=== PATIENT | female | born 1970 | race Asian ===

== ENCOUNTER 2019-01-10 12:04 | Day surgery (SDC) | payer OTHER ==
[2019-01-07 11:22] VITALS: BMI 38.9
[2019-01-10 10:29] LABS: BASO % 0.4 % (0-2.0); EOS % 4.8 % (0-4.5); HEMATOCRIT 34.5 % (32.4-45.2); LYMPH % 27.3 % (8-40); MCH 26.5 pg (25.7-33.7); MEAN CELL VOLUME 82.8 fl (80-96); MEAN PLT VOLUME 9.4 fl (7.5-11.1); MONO % 7.1 % (3.8-10.2); NEUT % 60.4 % (42.8-82.8); PLATELET COUNT 284 K/MM3 (134-434); RBC 4.17 M/mm3 (3.60-5.2); RDW 17.4 % (11.6-15.6); WHITE BLOOD COUNT 7.7 K/mm3 (4.0-10.0)
[2019-01-10 10:44] LABS: INR 0.99 (0.83-1.09); PROTHROMBIN TIME (PATIENT) 11.7 SEC (9.7-13.0)
[2019-01-10 15:37] LABS: BF GLUCOSE (CSF ONLY) 62 mg/dL (40-70)
[2019-01-10] MEDS ORDERED: ALPRAZolam 0.25 MG TABLET PO ONE ×2 (15:45→16:20)
[2019-01-10 15:50] LABS: CSF WBC 4
[2019-01-10 15:57] LABS: CSF APPEARANCE CLEAR; CSF COLOR COLORLESS
[2019-01-10 18:52] VITALS: BP 109/73; PULSE 79; TEMP 98.5
== END 2019-01-10 18:45 | disposition home or self-care (01) ==
LOC: JRADIR 12:04
PROVIDERS: ATTEND Psychiatry & Neurology Neurology
PROC: 009U3ZX Drainage of Spinal Canal, Percutaneous Approach, Diagnostic (ICD-10-PCS; principal; 2019-01-10)
PROC: 009U3ZX Drainage of Spinal Canal, Percutaneous Approach, Diagnostic (ICD-10-PCS; 2019-01-10)
PROC: B01BZZZ Fluoroscopy of Spinal Cord (ICD-10-PCS; 2019-01-10)
DX: G35 Multiple sclerosis (principal)
CPT/HCPCS: 36415; 62272; 76000-TC-FY; 76098-TC-FY; 82784; 82787; 82945; 83873; 83916; 84157; 84703; 85025; 85610; 87070; 87205; 87899